=== PATIENT | female | born 1980 | race Caucasian/White ===

== ENCOUNTER 2019-08-07 07:07 | Day surgery (SDC) | payer OTHER ==
[~2019-08-07] VITALS: Ht 162.6 cm; Wt 43.5 kg
[~2019-08-07 07:07] MED LIST: BUTALB-ACETAMI1 EAC7 PO; Imitrex50 MG PO; SPRINTEC 28 DA1 EACH PO
--- NOTE | 2019-08-07 09:04 | NUR ---
08/07/19 0904 Laz Nuñez FLUID DEFICIT 60 [facility]
== END 2019-08-07 10:22 | disposition home or self-care (01) ==
LOC: ORSCSDS 07:07
PROVIDERS: Obstetrics & Gynecology
PROC: 0U5B8ZZ Destruction of Endometrium, Via Natural or Artificial Opening Endoscopic (ICD-10-PCS; principal; 2019-08-07 08:30)
DX: N92.0 Excessive and frequent menstruation with regular cycle (principal); N94.6 Dysmenorrhea, unspecified; E66.01 Morbid (severe) obesity due to excess calories; Z68.41 Body mass index [BMI] 40.0-44.9, adult; Z79.899 Other long term (current) drug therapy
CPT/HCPCS: 88305; J0690; J1100; J1885; J2250; J2405; J2704; J2765; J3010